=== PATIENT | female | born 1965 | race Caucasian/White ===

== ENCOUNTER → 2016-09-19 | Outpatient (CLI) | payer OTHER ==
[~2016-09-19] MED LIST: CITA20TA9 PO; GABA300C19 PO; LEVO-371 PO; OMEP20CA9 PO; REFRESH EYE; xyzol
--- NOTE | 2016-09-19 17:03 | MAMMOGRAPHY REPORT ---
BILATERAL DIGITAL SCREENING MAMMOGRAM TOMOSYNTHESIS WITH CAD: 09/19/2016 TECHNIQUE: Breast tomosynthesis in addition to standard 2D mammography was performed. Current study was also evaluated with a Computer Aided Detection (CAD) system. COMPARISON: Comparison is made to exams dated: 09/16/2015 mammogram, 08/06/2014 mammogram, 03/17/2013 mammogram, and 03/12/2011 mammogram - [facility]. BREAST COMPOSITION: There are scattered areas of fibroglandular density in both breasts. FINDINGS: No suspicious masses, calcifications, or areas of architectural distortion are noted in e ither breast. There has been no significant interval change compared to prior exams. IMPRESSION: ACR BI-RADS CATEGORY 1: NEGATIVE There is no mammographic evidence of malignancy. A 1 year screening mammogram is recommended. The p atient will receive written notification of the results. Approximately 10% of breast cancers are not detected with mammography. A negative mammographic repor t should not delay biopsy if a clinically suggestive mass is present. Monique Myers M.D. ah/:09/19/2016 16:08:16 Oil Speculator: Abbey FIERRO)(Preethi), [facility] letter sent: Normal 1/2 BI-RADS Code: ACR BI-RADS Category 1: Negative
== END | disposition home or self-care (01) ==
LOC: C.MAMM 15:47
PROVIDERS: ATTEND Obstetrics & Gynecology
DX: Z12.31 Encounter for screening mammogram for malignant neoplasm of breast (principal)

== ENCOUNTER 2016-10-17 17:02 | Emergency (ER) | payer OTHER ==
[~2016-10-17] VITALS: Ht 162.6 cm; Wt 74.5 kg
[~2016-10-17 17:02] MED LIST changes: -CITA20TA9 PO; -GABA-1218 PO; +GABA300C19 PO; -LEVO5TAB2 PO
[2016-10-17 17:07] VITALS: TEMP 37.2; Ht 162.6 cm; Wt 74.5 kg
--- NOTE | 2016-10-17 17:52 | DIAGNOSTIC IMAGING REPORT ---
LEFT FOREARM 2 VIEWS ROUTINE CLINICAL HISTORY: fall, pain trauma. Pain. COMPARISON: None. DISCUSSION: The bones and joint spaces appear intact. There is no evidence of fracture, dislocation or bony disease. There is no evidence for soft tissue swelling. IMPRESSION: Negative study. Electronically signed by: Pedrito Mead M.D. 10/17/2016 5:50 PM Dictated Date/Time: 10/17/2016 5:50 PM
--- NOTE | 2016-10-17 17:53 | DIAGNOSTIC IMAGING REPORT ---
RIGHT FOREARM 2 VIEWS ROUTINE CLINICAL HISTORY: fall pain Right trauma. Pain. COMPARISON: None. DISCUSSION: The bones and joint spaces appear intact. There is no evidence of fracture, dislocation or bony disease. Mild degenerative change. IMPRESSION: Mild degenerative change. No acute bony abnormality. Electronically signed by: Pedrito Mead M.D. 10/17/2016 5:51 PM Dictated Date/Time: 10/17/2016 5:51 PM
--- NOTE | 2016-10-17 18:06 | EMERGENCY ROOM VISIT NOTE ---
History Report prepared by Tranibforeign: Liana Eckert Under the Supervision of: Dr. Piyush Warner D.O. First contact with patient: 17:16 Chief Complaint: FALL Stated Complaint: FALL/ BOTH ELBOW & WRIST PAIN History of Present Illness The patient is a 51 year old female who presents to the Emergency Room with complaints of constant right wrist and bilateral elbow pain that began this evening status post a fall. The patient states that she was walking outside in a parking lot and tripped over a lip the sidewalk and parking lot. She fell forward and landed on her right list and lower arms. She did not hit her elbows, but feels like she kavitha them during the fall. Her right elbow hurts more than the left at present. Her pain is worse with movement of her arms and hands. She denies any other injuries from the fall. She did not hit her head or lose consciousness. Source of History: patient Onset: this evening Position: elbow (bilateral), wrist (right) Timing: constant Modifying Factors (Worsening): movement Associated Symptoms: No LOC Review of Systems See HPI for pertinent positives & negatives. A total of 10 systems reviewed and were otherwise negative. Past Medical & Surgical Medical Problems: (1) Diverticulitis Family History No pertinent family history stated. Social History Smoking Status: Never Smoker Housing Status: lives with family Occupation Status: employed Current/Historical Medications Scheduled Gabapentin (Neurontin), 300 MG PO HS Omeprazole (Prilosec), 20 MG PO BID [refresh eye gtt], PRN [xyzol ], 5 MG DAILY Allergies Coded Allergies: No Known Drug Allergy (Verified Allergy, Unknown, ., 05/10/15) Physical Exam Vital Signs Date Time Temp Pulse Resp B/P Pulse Ox O2 Delivery O2 Flow Rate FiO2 10/17/16 17:07 37.2 18 18 103/43 69 Room Air Physical Exam CONSTITUTIONAL/VITAL SIGNS: Reviewed / noted above. GENERAL: Non-toxic in appearance. INTEGUMENTARY: Warm, dry, and [place]. HEAD: Normocephalic. EYES: without scleral icterus or trauma. ENT/OROPHARYNX: clear and moist. LYMPHADENOPATHY/NECK: Is supple without lymphadenopathy or meningismus. RESPIRATORY: Lungs clear and equal. CARDIOVASCULAR: Regular rate and rhythm. GI/ABDOMEN: Soft and nontender. No organomegaly or pulsatile mass. No rebound or guarding. Normal bowel sounds. EXTREMITIES: Warm and well perfused. There is some mild discomfort in the lateral proximal forearm bilaterally with certain movements of the arms and wrists. No obvious deformity. Minimal tenderness of the lateral bilateral forearms on exam. Small abrasion on the right palm. No snuff box tenderness bilaterally. No discomfort with axial loading of upper extremity digits or long bones. BACK: No CVA tenderness. NEUROLOGICAL: Intact without focal deficits. PSYCHIATRIC: normal affect. MUSCULOSKELETAL: Normally developed with good muscle tone. Medical Decision & Procedures ER Provider Diagnostic Interpretation: Radiology results as stated below per my review and radiologist interpretation: RIGHT FOREARM 2 VIEWS ROUTINE CLINICAL HISTORY: fall pain Right trauma. Pain. COMPARISON: None. DISCUSSION: The bones and joint spaces appear intact. There is no evidence of fracture, dislocation or bony disease. Mild degenerative change. IMPRESSION: Mild degenerative change. No acute bony abnormality. Electronically signed by: Pedrito Mead M.D. 10/17/2016 5:51 PM Dictated Date/Time: 10/17/2016 5:51 PM LEFT FOREARM 2 VIEWS ROUTINE CLINICAL HISTORY: fall, pain trauma. Pain. COMPARISON: None. DISCUSSION: The bones and joint spaces appear intact. There is no evidence of fracture, dislocation or bony disease. There is no evidence for soft tissue swelling. IMPRESSION: Negative study. Electronically signed by: Pedrito Mead M.D. 10/17/2016 5:50 PM Dictated Date/Time: 10/17/2016 5:50 PM ED Course 1720: The patient was evaluated in room A5. A complete history and physical examination was performed. 1803: On reevaluation, the patient is resting comfortably. I discussed the results and findings with the patient. She verbalized agreement of the treatment plan. The patient was discharged home. Medical Decision Differential diagnosis: Etiologies such as fracture, dislocation, neurovascular compromise, compartment syndrome, soft tissue injury, as well as others were entertained. The patient presents as above with a fall on outstretched hand. She complains of bilateral forearm pain. X-rays of the forearms were performed. There was a questionable finding on the right radial head although radiology felt this might be a nutrient vessel. Because the patient's symptoms, the patient will be splinted and placed in a sling with orthopedic follow-up for reassessment of this. The patient did not require pain medication. She states that she will take Tylenol or Motrin. She is felt to be stable for discharge. She did have a wound on her right palm. This was an abrasion with minimal contamination. This was irrigated and cleaned and antibiotic was applied as well as a dressing. Impression Primary Impression: Forearm contusion Additional Impressions: possible radial head fx Abrasion of palm Scribe Attestation The scribe's documentation has been prepared under my direction and personally reviewed by me in its entirety. I confirm that the note above accurately reflects all work, treatment, procedures, and medical decision making performed by me. Departure Information Dispostion Home / Self-Care Referrals Vipin Garcia D.O. (PCP) Jose Eduardo Us D.O. Patient Instructions My [facility] Additional Instructions Keep splint clean and dry. Follow-up with orthopedics for reassessment of your possible radial head fracture. Return for any concerns. Tylenol/Motrin as needed for pain. Problem Qualifiers
[2016-10-17 18:36] VITALS: BP 118/77; PULSE 68; O2SAT 94
[2016-10-17] MEDS ORDERED: LEVO-371 PO (18:37)
[2016-10-17] MEDS ORDERED: CITA20TA9 PO (18:37)
== END 2016-10-17 18:36 | disposition home or self-care (01) ==
LOC: EDBD 17:02 → C.EDA 17:03
DX: S50.11XA Contusion of right forearm, initial encounter (principal); S60.511A Abrasion of right hand, initial encounter; W01.0XXA Fall on same level from slipping, tripping and stumbling without subsequent striking against object, initial encounter; Y92.481 Parking lot as the place of occurrence of the external cause; K57.92 Diverticulitis of intestine, part unspecified, without perforation or abscess without bleeding; Z79.899 Other long term (current) drug therapy

== ENCOUNTER → 2016-10-17 | Outpatient (CLI) | payer OTHER ==
[~2016-10-17] MED LIST changes: +GABA-1218 PO; -GABA300C19 PO; -LEVO-371 PO; +LEVO5TAB2 PO
== END | disposition home or self-care (01) ==
LOC: C.PAPS 09:35
PROVIDERS: ATTEND Obstetrics & Gynecology
DX: Z12.4 Encounter for screening for malignant neoplasm of cervix (principal)

== ENCOUNTER → 2017-11-26 | Outpatient (CLI) | payer OTHER ==
[~2017-11-26] MED LIST changes: +CITA20TA9 PO; +GABA-1218 PO; -GABA300C19 PO; +LEVO5TAB2 PO; -OMEP20CA9 PO; -REFRESH EYE; -xyzol
--- NOTE | 2017-11-27 15:06 | MAMMOGRAPHY REPORT ---
BILATERAL DIGITAL SCREENING MAMMOGRAM TOMOSYNTHESIS WITH CAD: 11/26/2017 CLINICAL HISTORY: Routine screening. Patient has no complaints. TECHNIQUE: Breast tomosynthesis in addition to standard 2D mammography was performed. Current study was also evaluated with a Computer Aided Detection (CAD) system. COMPARISON: Comparison is made to exams dated: 09/19/2016 mammogram, 08/06/2014 mammogram, 09/16/2015 ma mmogram, 03/17/2013 mammogram, 03/13/2012 mammogram, and 03/12/2011 mammogram - [facility]. BREAST COMPOSITION: There are scattered areas of fibroglandular density in both breasts. FINDINGS: The parenchymal pattern is unchanged. No developing mass, architectural distortion or clus ter of suspicious microcalcifications is seen in either breast. IMPRESSION: ACR BI-RADS CATEGORY 2: BENIGN There is no mammographic evidence of malignancy. A 1 year screening mammogram is recommended. The pa tient will receive written notification of the results. Approximately 10% of breast cancers are not detected with mammography. A negative mammographic report should not delay biopsy if a clinically suggestive mass is present. Jyoti Santacruz M.D. ay/:11/26/2017 16:54:46 Biometric Technician: Perry James M, [facility] letter sent: Normal 1/2 BI-RADS Code: ACR BI-RADS Category 2: Benign
== END | disposition home or self-care (01) ==
LOC: C.MAMM 12:09
PROVIDERS: ATTEND Obstetrics & Gynecology
DX: Z12.31 Encounter for screening mammogram for malignant neoplasm of breast (principal)

== ENCOUNTER → 2017-12-04 | Outpatient (CLI) | payer OTHER | END | disposition home or self-care (01) | LOC: C.PAPS 13:58 | PROVIDERS: ATTEND Obstetrics & Gynecology | DX: Z01.419 Encounter for gynecological examination (general) (routine) without abnormal findings (principal) ==